=== PATIENT | female | born 2000 | race Caucasian/White ===

== ENCOUNTER 2020-02-10 00:11 | Emergency (ER) | payer OTHER ==
[~2020-02-10] VITALS: Ht 162 cm; Wt 56.3 kg
[2020-02-10 00:38] LABS: BILIRUBIN,URINE NEGATIVE (NEGATIVE); CLARITY,URINE CLEAR; COLOR,URINE YELLOW; GLUCOSE, URINE (UA) NEGATIVE (NEGATIVE); KETONES,URINE NEGATIVE (NEGATIVE); LEUKOCYTE ESTERASE ,URINE NEGATIVE (NEGATIVE); NITRITE,URINE NEGATIVE (NEGATIVE); PH,URINE 6.5 (5-9); PROTEIN,URINE NEGATIVE (NEGATIVE)
[2020-02-10 00:43] LABS: RBC,URINE RARE /HPF; WBC,URINE RARE /HPF
[2020-02-10 00:44] LABS: BACTERIA,URINE NEGATIVE /HPF
[2020-02-10 00:49] LABS: AMPHETAMINE SCREEN, URINE NEGATIVE (NEGATIVE); BARBITURATE SCREEN URINE NEGATIVE (NEGATIVE); BENZODIAZEPINES SCREEN URINE NEGATIVE (NEGATIVE); CANNABINOID SCREEN, URINE NEGATIVE (NEGATIVE); COCAINE SCREEN URINE NEGATIVE (NEGATIVE); METHADONE STAT NEGATIVE (NEGATIVE); METHAMPHETAMINE SCREEN URINE S NEGATIVE (NEGATIVE); OPIATE SCREEN URINE NEGATIVE (NEGATIVE); OXYCODONE STAT NEGATIVE (NEGATIVE); PROPOXYPHENE STAT NEGATIVE (NEGATIVE); TRICYCLIC ANTIDEPRESSANTS SCRE NEGATIVE (NEGATIVE)
--- NOTE | 2020-02-10 01:29 | ED GU-Female ---
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 Pt states pain is worse when laying down or sitting straight up. 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 Source: patient History of Present Illness Date Seen by Provider: February 10, 2020 Time Seen by Provider: 00:28 Initial Comments PT ARRIVES VIA POV FROM HOME C/O PELVIC PAIN AND PAIN ON URINATION WHICH BEGAN SHORTLY AFTER INTERCOURSE, APPROXIMATELY AN HOUR AGO PAIN IS WORSE WITH SITTING UP OR LAYING FLAT. NO BACK / FLANK PAIN NO FEVER NO NAUSEA/VOMITING/DIARRHEA NO RECENT ILLNESS NO VAGINAL DISCHARGE NO HISTORY OF SIMILAR, AND NO HISTORY OF REGULATORY AFFAIRS STRATEGY SPECIALIST PROBLEMS OR STD'S PT WAS TREATED FOR UTI AT [facility] 2 WEEKS AGO--UNKNOWN ANTIBIOTIC. TOOK FOR 3 DAYS--WAS TOLD THAT SHE COULD STOP IT AFTER 3 DAYS IF HER SYMPTOMS WERE BETTER. NO SYMPTOMS UNTIL TONIGHT HAS NOT TAKEN ANYTHING FOR PAIN LMP--LIGHT PERIOD FOR 3 DAYS IN SEPTEMBER--HAS BEEN ON [facility]CP[facility] X 1 YEAR, AND PERIODS HAVE BEEN SPORADIC SINCE STARTING ON [facility] HAD 2 NEGATIVE HOME TESTS 1 1/2 MONTHS AGO [facility] Allergies and Home Medications Allergies Coded Allergies: No Known Drug Allergies (Unverified , 02/10/20) Patient Home Medication List Home Medication List Reviewed: Yes Review of Systems Review of Systems Constitutional: no symptoms reported EENTM: no symptoms reported Respiratory: no symptoms reported Cardiovascular: no symptoms reported Gastrointestinal: see HPI, abdominal pain; No constipation, No diarrhea, No nausea, No vomiting Genitourinary: see HPI, dysuria; denies flank pain; other (PELVIC PAIN ) Musculoskeletal: no symptoms reported Skin: no symptoms reported Psychiatric/Neurological: No Symptoms Reported Endocrine: No Symptoms Reported Hematologic/Lymphatic: No Symptoms Reported Past Moulclz-Tchvum-Fcrzgz Hx Past Med/Social Hx: Reviewed and Corrections made Patient Social History Alcohol Use: Denies Use Recreational Drug Use: No Smoking Status: Never a Smoker 2nd Hand Smoke Exposure: No Recent Foreign Travel: No Contact w/Someone Who Travel: No Recent Infectious Disease Expo: No Recent Hopitalizations: No Physical Abuse: No Sexual Abuse: No Mistreated: No Fear: No Seasonal Allergies Seasonal Allergies: No Past Medical History Surgeries: Yes Adenoidectomy Respiratory: No Cardiac: No Neurological: No : No Reproductive Disorders: No Sexually Transmitted Disease: No Genitourinary: No Gastrointestinal: No Musculoskeletal: No Endocrine: No HEENT: No Cancer: No Psychosocial: Yes (MOOD DISORDER) Anxiety, Bipolar, Depression Integumentary: No Blood Disorders: No Physical Exam Vital Signs Vital Signs - First Documented 02/10/20 00:24 Temp 37.2 Pulse 96 Resp 21 B/P (MAP) 128/71 Pulse Ox 97 O2 Delivery Room Air Capillary Refill : Height, Weight, BMI Height: '" Weight: lbs. oz. kg; 21.00 BMI Method: General Appearance: WD/WN, no apparent distress, thin Cardiovascular: regular rate, rhythm, no murmur Respiratory: normal breath sounds, no respiratory distress, no accessory muscle use Gastrointestinal: normal bowel sounds, soft, no organomegaly, no pulsatile mass; No distended, No guarding, No rebound; tenderness (MILD SUPRAPUBIC TENDERNESS); No hernia, No mass Pelvic: normal external exam, no cerv. motion tender, no masses; No discharge, No lesions, No mass, No tender w/ cervical motion; tender adnexa (MILD--LEFT > RIGHT ), tender uterus (MILD); No vaginal bleeding, No other (NO CERVICITIS. ) Back: normal inspection, no CVA tenderness Extremities: normal inspection Neurologic/Psychiatric: weed cutter II-XII nml as tested, no motor/sensory deficits, alert, normal mood/affect, oriented x 3 Skin: normal color, warm/dry Progress/Results/Core Measures Suspected Sepsis SIRS Temperature: Pulse: Respiratory Rate: Blood Pressure / Mean: Results/Orders Lab Results Laboratory Tests Test 02/10/20 00:30 02/10/20 01:26 Range/Units Urine Color YELLOW Urine Clarity CLEAR Urine pH 6.5 5-9 Urine Specific [place] <=1.005 1.016-1.022 Urine Protein NEGATIVE NEGATIVE Urine Glucose (UA) NEGATIVE NEGATIVE Urine Ketones NEGATIVE NEGATIVE Urine Nitrite NEGATIVE NEGATIVE Urine Bilirubin NEGATIVE NEGATIVE Urine Urobilinogen 0.2 < = 1.0 MG/DL Urine Leukocyte Esterase NEGATIVE NEGATIVE Urine RBC (Auto) TRACE-L NEGATIVE Urine RBC RARE /HPF Urine WBC RARE /HPF Urine Squamous Epithelial Cells 2-5 /HPF Urine Crystals NONE /LPF Urine Bacteria NEGATIVE /HPF Urine Casts NONE /LPF Urine Mucus NEGATIVE /LPF Urine Culture Indicated NO Urine Opiates Screen NEGATIVE NEGATIVE Urine Oxycodone Screen NEGATIVE NEGATIVE Urine Methadone Screen NEGATIVE NEGATIVE Urine Propoxyphene Screen NEGATIVE NEGATIVE Urine Barbiturates Screen NEGATIVE NEGATIVE Ur Tricyclic Antidepressants Screen NEGATIVE NEGATIVE Urine Phencyclidine Screen NEGATIVE NEGATIVE Urine Amphetamines Screen NEGATIVE NEGATIVE Urine Methamphetamines Screen NEGATIVE NEGATIVE Urine Benzodiazepines Screen NEGATIVE NEGATIVE Urine Cocaine Screen NEGATIVE NEGATIVE Urine Cannabinoids Screen NEGATIVE NEGATIVE My Orders Orders - JENNA GAVIRIA DO Urine Bedside (02/10/20 00:19) Drug Screen Stat (Urine) (02/10/20 00:19) Ua Culture If Indicated (02/10/20 00:19) Neisseria Gonorrhea Swab (02/10/20 00:52) Chlam Dna Probe (02/10/20 00:52) Genital Culture (02/10/20 00:52) Wet Prep (02/10/20 00:52) June Prep (02/10/20 00:52) Ceftriaxone For Im Use (Rocephin For Im (02/10/20 01:30) Lidocaine 1% Inj 20 Ml (Xylocaine 1% Inj (02/10/20 01:30) Azithromycin Tablet (Zithromax Tablet) (02/10/20 01:30) Ketorolac Injection (Toradol Injection) (02/10/20 01:45) Vital Signs/I&O 02/10/20 00:24 Temp 37.2 Pulse 96 Resp 21 B/P (MAP) 128/71 Pulse Ox 97 O2 Delivery Room Air Capillary Refill : Progress Note : Progress Note PAIN RESOLVED SHORTLY AFTER ARRIVAL PT REQUESTED PAIN MEDICATION PRIOR TO DISMISSAL. STATES WHEN SHE STOOD UP, SHE HAD SOME RETURN OF PAIN--GIVEN SHOT OF TORADOL ALSO GIVEN ROCEPHIN IM AND ZITHROMAX PO UNEVENTFUL ER STAY Departure Impression Primary Impression: pain after intercourse Disposition: HOME, SELF-CARE Condition: Stable Departure-Patient Inst. Referrals: NO,LOCAL PHYSICIAN (PCP) Primary Care Physician YU BELL MD Patient Instructions: Acute Pelvic Pain (DC) Add. Discharge Instructions: LOTS OF CLEAR LIQUIDS TYLENOL AND MOTRIN NEEDED FOR PAIN MOIST HEAT TO LOWER ABDOMEN AT 20 MINUTE INTERVALS FOLLOW UP WITH [facility] IN 3-4 DAYS IF NO BETTER NO INTERCOURSE X 1 WEEK, OR UNTIL CLEARED BY All discharge instructions reviewed with patient and/or family. Voiced understanding. JENNA GAVIRIA DO February 10, 2020 01:29
[2020-02-10] MEDS ORDERED: LIDOCAINE 1% INJ 20 ML 20 ML VIAL INJ ONE (01:30)
[2020-02-10] MEDS ORDERED: cefTRIAXone 1,000 MG/2.86 ml vial (IM ONLY) IM SCH (01:30)
[2020-02-10] MEDS ORDERED: AZITHROMYCIN 250 MG TAB (ZITHROMAX) PO ONE (01:30)
[2020-02-10] MEDS ORDERED: KETOROLAC 60 MG/2 ML VIAL IM ONE (01:45)
== END 2020-02-10 01:46 | disposition home or self-care (01) ==
LOC: ER 00:15
DX: R10.2 Pelvic and perineal pain (principal); R30.9 Painful micturition, unspecified
CPT/HCPCS: 36415; 80306; 81000; 84703; 87070; 87205; 87210; 87491; 87591; 99284